=== PATIENT | female | born 1940 | race Caucasian/White ===

== ENCOUNTER 2017-04-03 10:27 | Day surgery (SDC) | payer MEDICARE, BC ==
--- OUTSIDE RECORDS SUMMARY | 2017-04-03 10:31 | XMS REPORT | Continuity of Care Document ---
:1940 Author Organization [facility] ([facility]) Address [address] [place] [address] Phone [phone] Care Team Providers Name Role Phone Lewis Sanford Primary Care Provider [phone] Source Comments This disclosure is being made pursuant to the Care Everywhere program, applicable federal and state laws, and may not contain all informaitonavailable regarding this patient.[facility] ([facility]) Active Allergies and Adverse Reactions Allergen Noted Date Severity Reactions Comments Azithromycin 04/14/2016 Unknown Codeine 04/14/2016 Unknown Erythromycin 04/14/2016 Unknown Other Agent 04/14/2016 Unknown Sulfa (Sulfonamide Antibiotics) 04/14/2016 Unknown Current Medications Prescription Sig. Disp. Refills Start Date End Date Status ALLOPURINOL 300 mg 150 mg daily. 3 06/01/2015 Active tablet CLOPIDOGREL 75 mg 3 07/06/2015 Active tablet TAZTIA XT 360 mg ER Take 360 mg by 2 06/01/2015 Active capsule mouth daily. DULOXETINE 30 mg XR Take 30 mg by 6 06/30/2015 Active capsule mouth 2 times daily. FENOFIBRATE 160 mg Take 160 mg by 2 07/09/2015 Active tablet mouth daily. FLUTICASONE 50 8 08/04/2015 Active mcg/Actuation nasal spray METOPROLOL tartrate 100 Take 100 mg by 2 08/03/2015 Active mg tablet mouth daily. MOMETASONE 0.1 % 3 07/22/2015 Active ointment MONTELUKAST 10 mg Take 10 mg by 6 07/22/2015 Active tablet mouth every evening. MORPHINE 15 mg CR Take 15 mg by 0 08/04/2015 Active tablet mouth 2 times daily. polyethylene glycol 3 06/18/2015 Active 3350 (MIRALAX) 17 gram/dose powder losartan-hydrochlorothi Take 1 tablet by 90 tablet 1 08/27/2015 Active azide 100-25 mg per mouth daily tablet mirtazapine 15 mg Take 15 mg by 3 04/11/2016 Active tablet mouth at bedtime. pantoprazole 40 mg EC Take 40 mg by 6 04/12/2016 Active tablet mouth daily. potassium chloride 10 Take 40 mEq by 03/17/2016 Active mEq tablet mouth daily. cetirizine 10 mg tablet Take 10 mg by Active mouth daily. Active Problems Problem Noted Date Aortic valve sclerosis 08/09/2015 Overview: Formatting of this note may be different from the original. CARDIOVASCULAR PROCEDURES ECHO/MUGA: Echo (There is mild to moderate concentric left ventricular hypertrophy. Left ventricular systolic function is normal. The transmitral spectral Doppler flow pattern is suggestive of impaired LV relaxation. There is aortic valve sclerosis without stenosis. Doppler findings do not suggest pulmonary hypertension. ) - 09/12/2011 STRESS TESTS: MPI (EF.65, Normal 1) LV has normal size, wall motion and systolic function with calculated EF of 65%. 2) Normal MPI study for inducible ischemia.) - 09/14/2011 Precordial pain 08/09/2015 Overview: Formatting of this note may be different from the original. STRESS TESTS: MPI (EF.65, Normal 1) LV has normal size, wall motion and systolic function with calculated EF of 65%. 2) Normal MPI study for inducible ischemia.) - 09/14/2011 Hyperlipidemia Hypertension Diabetes mellitus Diastolic dysfunction Social History Tobacco Use Types Packs/Day Years Used Date Never Smoker Smokeless Tobacco: Never Used Alcohol Use Drinks/Week oz/Week Comments No Last Filed Vital Signs Vital Sign Reading Time Taken Blood Pressure 122/60 04/14/2016 12:50 PM CDT Pulse 70 04/14/2016 12:50 PM CDT Temperature - - Respiratory Rate - - Height 1.575 m (5' 2.01") 04/14/2016 12:50 PM CDT Weight 77.565 kg (171 lb) 04/14/2016 12:50 PM CDT Body Mass Index 31.27 04/14/2016 12:50 PM CDT Oxygen Saturation - - Plan of Care Health Maintenance Due Date Last Done Comments Hepatitis B Vaccine (1 of 3 - Primary Series) 1940 Tdap Vaccine 1952 DIABETIC: Cholesterol 1959 Diabetic: Hdl 1959 DIABETIC: Hemoglobin A1C 1959 Diabetic: Ldl 1959 DIABETIC: Microalbumin 1959 DIABETIC: Triglycerides 1959 Td Vaccine 1959 Mammogram 1981 Colonoscopy 1991 Zoster Vaccine 2001 Osteoporosis Screening (DXA Bone Density) 2006 Pneumococcal Vaccine (1 of 2 - PCV13) 2006 DIABETIC: Foot Exam 08/09/2015 DIABETIC: Retinal Eye Exam 08/09/2015 Influenza Vaccine: Seasonal (#1) 05/23/2016 Results from Last 3 Months Not on file
--- NOTE | 2017-04-03 11:21 | OR ---
Anesthesia Pre Procedure Eval Date of Service: 04/03/17 Pre Procedure Evaluation: Last Vital Signs Temp 36.5 C 04/03/17 10:35 Pulse 72 04/03/17 10:35 Resp 18 04/03/17 10:35 BP 132/70 04/03/17 10:35 Pulse Ox 96 04/03/17 10:35 Anesthesia Pre Procedure Evaluation DATE: 04/03/2017. TIME: 1110. INDICATIONS: Arthritis, facet joint arthropathy, and back pain. PAST MEDICAL HISTORY: Is a 76-year-old female with a history of lumbar back pain which is nonradiating in nature. This is her first facet injection. EXAM: MRI report and films were reviewed. Pain is 5/10 on pain scale at present. ASSESSMENT OF MEDICAL STATUS: O.K. to proceed with facet injections. PLANNED PROCEDURE: Bilateral fluoroscopic guided facet injections L3-4, L4-5, L5-S1. Home Medications: HOME MEDICATIONS Clopidogrel Bisulfate [Plavix] 75 mg PO DAILY 02/06/13 [Last Taken Unknown] DULoxetine HCL [Cymbalta] 30 mg PO DAILY 02/06/13 [Last Taken Unknown] Fluticasone Propionate [Flonase] 1 spray NS DAILY 02/06/13 [Last Taken Unknown] Morphine Sulfate [Ms Contin] 15 mg PO Q8H 02/06/13 [Last Taken Unknown] Polyethylene Glycol 3350 [Miralax] 17 gm PO DAILY 02/06/13 [Last Taken Unknown] Albuterol Sulfate [Ventolin HFA] 2 puff IH Q4H PRN 03/31/17 [Last Taken Unknown] Allopurinol [Zyloprim (Allopurinol)] 200 mg PO DAILY 03/31/17 [Last Taken Unknown] Blood-Glucose Meter [Blood Glucose Monitoring] 1 each MC DAILY 03/31/17 [Last Taken Unknown] Cetirizine HCl [Zyrtec] 10 mg PO DAILY 03/31/17 [Last Taken Unknown] Cholecalciferol (Vitamin D3) [Vitamin D3] 3,000 unit PO Q2D 03/31/17 [Last Taken Unknown] Cholecalciferol (Vitamin D3) [Vitamin D] 2,000 unit PO Q2D 03/31/17 [Last Taken Unknown] Ciclopirox Olamine [Loprox] 1 appl TP BID 03/31/17 [Last Taken Unknown] Diltiazem HCl [Tiazac] 180 mg PO DAILY 03/31/17 [Last Taken Unknown] Furosemide [Lasix] 40 mg PO DAILY 03/31/17 [Last Taken Unknown] L. Acidophilus/L. Rhamnosus [Probiotic 15 Billion Cell Cap] 1 each PO DAILY 07/09 [Last Taken Unknown] Losartan Potassium [Cozaar] 25 mg PO DAILY 03/31/17 [Last Taken Unknown] Metoprolol Tartrate [Lopressor] 50 mg PO DAILY 03/31/17 [Last Taken Unknown] Mirtazapine [Mirtazapine (Remeron)] 15 mg PO HS 03/31/17 [Last Taken Unknown] Montelukast Sodium [Singulair] 10 mg PO DAILY 03/31/17 [Last Taken Unknown] Sennosides/Docusate Sodium [Senokot-S] 2 tab PO BID 03/31/17 [Last Taken Unknown ] predniSONE [Prednisone] 10 mg PO DAILY PRN 03/31/17 [Last Taken Unknown]
[2017-04-03] MEDS ORDERED: DEXAMETHASONE SOD PHOSPHATE 10 MG/ML VIAL IJ ONE (11:40)
[2017-04-03] MEDS ORDERED: BUPIVACAINE HCL/PF 30 ML VIAL IJ ONE (11:40)
[2017-04-03] MEDS ORDERED: LIDOCAINE HCL/PF 5 ML VIAL IJ ONE (11:40)
--- NOTE | 2017-04-03 12:28 | OR ---
Anesthesia Procedure Note - Anesthesia Procedure Note Date of Service: 04/03/17 Narrative: Vital Signs - Last Taken Temp 36.5 C 04/03/17 10:35 Pulse 94 04/03/17 12:05 Resp 16 04/03/17 12:05 BP 164/78 04/03/17 12:05 Pulse Ox 97 04/03/17 12:05 O2 Oxygen Delivery Method Room Air 04/03/17 12:15 ANESTHESIA PROCEDURE NOTE Date of Procedure: 04/03/2017. Time of procedure: 1135. Performed by: Bam Shrestha CRNA Biology Lecturer: None. Preprocedure diagnosis: Arthritis, facet joint arthropathy, back pain. Post procedure diagnosis: Same. Procedure: Bilateral fluoroscopic guided facet injections L3-4, L4-5, and L5-S1. Indications: This is a 76-year-old female with history of nonradiating back pain which is worsened upon ambulation. Findings: See below. Details of the procedure: The patient was brought back to operating room #2. The patient was then placed in the prone position to comfort. DuraPrep was applied to the patient's back. Patient was then draped in sterile fashion. Lidocaine 1% was injected subcutaneously at the intended target site of each facet injection. With fluoroscopic guidance, a 22-gauge quickie 3-1/2 inch spinal needle was placed into the left L5-S1 facet joint. A after negative aspiration 1.5 mL of a mixture of 1.33 mL 0.5% preservative-free Marcaine +1.66 mg of preservative free dexamethasone was instilled into the left L5-S1 facet joint. The needle was removed. A similar procedure was performed on the left L4-5 facet joint, the left L3-4 facet joint, the right L5-S1 facet joint, the right L4-5 facet joint, and the right L3-4 facet joint. Total fluoroscopy time:39.1seconds Cumulative Dose:11.37mGy. EBL: Minimal. Fluids: N/A. Specimen: N/A. Post procedure condition: The patient tolerated the procedure well. No complications were noted. No motor weaknesses or paresthesias were noted upon discharge. Thank you for this consultation. Bam Shrestha CRNA
[2017-04-03 15:48] VITALS: BP 134/72
== END 2017-04-03 10:28 | disposition home or self-care (01) ==
LOC: AMB 10:27
PROVIDERS: ATTEND Family Medicine
PROC: 3E0S3BZ Introduction of Anesthetic Agent into Epidural Space, Percutaneous Approach (ICD-10-PCS; 2017-04-03)
PROC: 3E0S33Z Introduction of Anti-inflammatory into Epidural Space, Percutaneous Approach (ICD-10-PCS; principal; 2017-04-03 11:00)
DX: M46.86 Other specified inflammatory spondylopathies, lumbar region (principal); Z68.35 Body mass index [BMI] 35.0-35.9, adult

== ENCOUNTER 2017-07-29 05:58 | Emergency (ER) | payer MEDICARE, BC ==
[2017-07-29] MEDS ORDERED: NITROGLYCERIN 0.4 MG/TAB BTL SL ONE (06:12)
[2017-07-29] MEDS ORDERED: ONDANSETRON HCL/PF 2 MG/ML VIAL ONE (06:21)
[2017-07-29] MEDS ORDERED: ONDANSETRON HCL/PF 2 MG/ML VIAL IV ONE (06:24)
[2017-07-29] MEDS ORDERED: PROMETHAZINE HCL 25 MG/ML AMPUL IM ONE (06:35)
[2017-07-29 06:36] LABS: Hematocrit 30.2 % (37.0-47.0); Hemoglobin 9.4 gm/dL (12.5-16.0); Mean Cell Volume 99.3 fl (78-100); Mean Corpuscular Hemoglobin 30.9 pg (27-31); Mean Corpuscular Hgb Conc 31.1 g/dl (32-36); Mean Platelet Volume 10.4 fl (6.0-9.5); Neutrophil # 12.8 K/mm3 (1.3-6.0); Neutrophil % 73.1 % (42-75.0); Platelet Count 292 K/mm3 (150-450); Red Blood Count 3.04 M/mm3 (4.2-5.4); Red Cell Distribution Width 15.8 % (11.5-14.0); White Blood Count 17.5 K/mm3 (4.0-10.5)
--- NOTE | 2017-07-29 06:37 | ERNOTE ---
<Eulalio Wisdom - Last Filed: 07/29/17 10:06> Chest Pain/Cardiac HPI Chief Complaint: Chest Pain Time Seen by Provider: 07/29/17 06:05 Immunizations: IMMUNIZATION HX Immunizations Up to Date Yes History of Influenza Vaccine Yes Hx Pneumococcal Vaccination Yes Allergies/Adverse Reactions: Allergies Sulfa (Sulfonamide Antibiotics) [Sulfa(Sulfonamide Antibiotics)] Allergy ( Unknown, Verified 07/29/17 06:07) adhesive tape Adverse Reaction (Mild, Verified 07/29/17 06:07) RED IRRITATION azithromycin [From Zithromax Z-Fam] Adverse Reaction (Mild, Verified 07/29/17 06 :07) GI UPSET ciprofloxacin HCl [From Cipro] Adverse Reaction (Mild, Verified 07/29/17 06:07) Vomiting, STOMACH PAIN codeine [Codeine] Adverse Reaction (Mild, Verified 07/29/17 06:07) ABD PAIN, N/V erythromycin base [Erythromycin Base] Adverse Reaction (Mild, Verified 07/29/17 06:07) GI UPSET/PAIN oxycodone Adverse Reaction (Mild, Verified 07/29/17 06:07) Nausea Home Medications: HOME MEDICATIONS Clopidogrel Bisulfate [Plavix] 75 mg PO DAILY 02/06/13 [Last Taken Unknown] DULoxetine HCL [Cymbalta] 30 mg PO DAILY 02/06/13 [Last Taken Unknown] Fluticasone Propionate [Flonase] 1 spray NS DAILY 02/06/13 [Last Taken Unknown] Morphine Sulfate [Ms Contin] 15 mg PO Q8H 02/06/13 [Last Taken Unknown] Polyethylene Glycol 3350 [Miralax] 17 gm PO DAILY 02/06/13 [Last Taken Unknown] Albuterol Sulfate [Ventolin HFA] 2 puff IH Q4H PRN 03/31/17 [Last Taken Unknown] Allopurinol [Zyloprim (Allopurinol)] 200 mg PO DAILY 03/31/17 [Last Taken Unknown] Blood-Glucose Meter [Blood Glucose Monitoring] 1 each MC DAILY 03/31/17 [Last Taken Unknown] Cholecalciferol (Vitamin D3) [Vitamin D3] 3,000 unit PO Q2D 03/31/17 [Last Taken Unknown] Diltiazem HCl [Tiazac] 180 mg PO DAILY 03/31/17 [Last Taken Unknown] Furosemide [Lasix] 40 mg PO DAILY 03/31/17 [Last Taken Unknown] L. Acidophilus/L. Rhamnosus [Probiotic 15 Billion Cell Cap] 1 each PO DAILY 07/09 [Last Taken Unknown] Losartan Potassium [Cozaar] 25 mg PO DAILY 03/31/17 [Last Taken Unknown] Metoprolol Tartrate [Lopressor] 50 mg PO DAILY 03/31/17 [Last Taken Unknown] Mirtazapine [Mirtazapine (Remeron)] 15 mg PO HS 03/31/17 [Last Taken Unknown] Montelukast Sodium [Singulair] 10 mg PO DAILY 03/31/17 [Last Taken Unknown] Sennosides/Docusate Sodium [Senokot-S] 2 tab PO BID 03/31/17 [Last Taken Unknown ] Famotidine [Pepcid AC] 20 mg PO DAILY 07/29/17 [Last Taken Unknown] ED Progress - Date and Time Seen: Date and Time: 07/29/17 10:07 Reviewed symptoms with patient. Pain is improved. Still increased with inspiration. Previous radiation to right arm is gone. Still slight radiation directly posterior to back. Exam: tender lower parasternal area with palpation. Chest is clear. - Vital Signs Vital Signs: Vital Signs 07/29/17 07/29/17 07/29/17 06:02 06:10 06:20 Temperature 36.8 C Pulse Rate 98 91 90 Respiratory 25 H 20 27 H Rate Blood Pressure 194/69 175/67 143/58 O2 Sat by Pulse 95 93 97 Oximetry 07/29/17 07/29/17 07/29/17 06:52 07:17 07:22 Temperature 36.8 C Pulse Rate 90 92 Respiratory 25 H 25 H Rate Blood Pressure 182/69 164/61 O2 Sat by Pulse 91 88 L 95 Oximetry 07/29/17 07/29/17 07:51 09:10 Temperature Pulse Rate 91 92 Respiratory 20 Rate Blood Pressure 157/60 136/54 O2 Sat by Pulse 99 92 Oximetry - Progress/Reassessment Chief Complaint: Chest Pain Plan - Plan Plan: Discussed with patient and . Likely costochondritis pain and/or esophageal. Does not appear to be cardiac. Departure Clinical Impression: Chest pain Qualifiers: Chest pain type: intercostal pain Qualified Code(s): R07.82 - Intercostal pain GERD (gastroesophageal reflux disease) Qualifiers: Esophagitis presence: esophagitis presence not specified Qualified Code(s): K21.9 - Gastro-esophageal reflux disease without esophagitis - Departure Disposition: Home self-care Condition: Fair Instructions: Nonspecific Chest Pain, [id number] Additional Instructions: Elevate HOB 10-12 inches Do not eat less than 3 hours before reclining Take Pepcid twice a day for one week then daily Use tylenol 650 mg every 6 hours for 48hrs Follow up with PCP Return to ED if condition worsens Referrals: Lewis Sanford MD [Primary Care Provider] - <Maile Brower - Last Filed: 07/31/17 07:35> Chest Pain/Cardiac HPI Source: patient, family, RN notes reviewed Exam Limitations: no limitations Immunizations: IMMUNIZATION HX Immunizations Up to Date Yes History of Influenza Vaccine Yes Hx Pneumococcal Vaccination Yes Narrative: Patient woke up about 4 AM with chest pain. She became nauseated from the pain, which is located across her chest, worse with breathing and movement. She tried various things at home to see if she could get the pain to settle down, but was unable to calm the pain down at all. She had not vomited, but was definitely sick to her stomach from the pain. Review of Systems - Review of Systems Constitutional: Absent: recent illness, fever, chills, diaphoresis, weakness EYE: Present: no symptoms reported ENT: Absent: ear pain, sore throat Respiratory: Absent: shortness of breath, cough Cardiology: Present: chest pain. Absent: palpitations, syncope Gastrointestinal/Abdominal: Present: nausea, vomiting. Absent: diarrhea, constipation, abdominal pain Genitourinary: Present: no symptoms reported Musculoskeletal: Present: no symptoms reported Skin: Absent: rash, dryness, lesions, lumps Neurological: Present: no symptoms reported Endocrine: Present: no symptoms reported Hematologic/Lymphatic: Present: no symptoms reported Psych: Present: no symptoms reported - Patient's Past Medical History Patient History - Medical: Chronic Pain, Diabetes Type 2, Renal Disease Patient History - Cardiac/Respiratory: Hypertension Patient History - Cancer: Skin Patient History - Surgical Procedures: Cholecystectomy, Hysterectomy, Total Knee Replacement, T & A Patient History - Other: None LMP (females 10-50): post men - Family History Mother Family History - Cardiac/Respiratory: CHF Father Family History - Cardiac/Respiratory: Hypertension - Social History Living Situations: home Psych History: No pertinent hx Smoking Status: Never smoker Alcohol Use: none Drug Use: none - Immunizations Immunizations Up to Date: Yes Hx Pneumococcal Vaccination: Yes History of Influenza Vaccine: Yes Physical Exam - Physical Exam General Appearance: Present: wd/wn, moderate distress, obese Head Exam: Present: normal inspection, no evidence of injury Eye Exam: Normal inspection: bilateral, PERRL: bilateral, EOMI: bilateral Ears, Nose, Throat: Present: normal ENT inspection, normal pharynx Neck: Present: normal inspection, nontender Respiratory: Present: no respiratory distress, normal breath sounds, no accessory muscle use, chest nontender, lungs clear Cardiovascular/Chest: Present: regular rate, rhythm, no murmur Gastrointestinal/Abdominal: Present: normal bowel sounds, nontender, nondistended, soft, no organomegaly Extremity Exam: Present: normal inspection, non-tender, normal range of motion, no edema Neurological Exam: Present: alert, oriented, normal mood/affect, no motor/ sensory deficits Skin Exam: Present: pallor ED Progress - Results and Orders Patient's Lab Results:: I have reviewed the patient's lab results. Results and Orders: Laboratory Tests 07/29/17 07/29/17 07/29/17 06:15 06:15 06:15 WBC 17.5 H RBC 3.04 L Hgb 9.4 L Hct 30.2 L MCV 99.3 MCH 30.9 MCHC 31.1 L RDW 15.8 H Plt Count 292 MPV 10.4 H Immature Gran % (Auto) 0.90 H Immature Gran # (Auto) 0.16 H Neutrophils % 73.1 Lymphocytes % 16.8 L Monocytes % 5.2 Eosinophils % 3.5 H Basophils % 0.5 Nucleated RBC % 0.0 Neutrophils # 12.8 H Lymphocytes # 2.9 Monocytes # 0.9 Eosinophils # 0.6 Absolute Basophils 0.1 PT 10.2 INR (Anticoag Therapy) 0.98 PTT ([place]) 28.2 Sodium 142 Plasma Sodium 143 H Potassium 3.1 L D Chloride 104 Carbon Dioxide 26.8 Anion Gap 14.3 H BUN 40 H Creatinine 3.45 H D Est GFR (Non-Af Amer) 14 L BUN/Creatinine Ratio 11.6 Random Glucose 157 H Calcium 8.9 Calcium Adj for Albumin 9.3 Total Bilirubin 0.5 AST 11 ALT 11 L Alkaline Phosphatase 167 Troponin I Less than 0.017 Total Protein 7.7 Albumin 3.1 L Urine Color Urine Appearance Urine pH Ur Specific [place] Urine Protein Urine Glucose (UA) Urine Ketones Urine Blood Urine Nitrate Urine Bilirubin Prot Sulfosalicylic Acd Urine Urobilinogen Ur Leukocyte Esterase Urine RBC Urine WBC Ur Epithelial Cells Urine Bacteria Urine Culture Comments 07/29/17 07/29/17 06:30 09:21 WBC RBC Hgb Hct MCV MCH MCHC RDW Plt Count MPV Immature Gran % (Auto) Immature Gran # (Auto) Neutrophils % Lymphocytes % Monocytes % Eosinophils % Basophils % Nucleated RBC % Neutrophils # Lymphocytes # Monocytes # Eosinophils # Absolute Basophils PT INR (Anticoag Therapy) PTT ([place]) Sodium Plasma Sodium Potassium Chloride Carbon Dioxide Anion Gap BUN Creatinine Est GFR (Non-Af Amer) BUN/Creatinine Ratio Random Glucose Calcium Calcium Adj for Albumin Total Bilirubin AST ALT Alkaline Phosphatase Troponin I Less than 0.017 Total Protein Albumin Urine Color Yellow Urine Appearance Clear Urine pH 7.0 Ur Specific [place] 1.010 Urine Protein 30 H Urine Glucose (UA) 250 H Urine Ketones Negative Urine Blood 25 H Urine Nitrate Negative Urine Bilirubin Negative Prot Sulfosalicylic Acd 2+ H Urine Urobilinogen Normal Ur Leukocyte Esterase Negative Urine RBC 0-5 Urine WBC Trace H Ur Epithelial Cells 0-5 Urine Bacteria 2+ H Urine Culture Comments Culture to follow - Vital Signs Patient's Vital Signs:: I have reviewed the patient's vital signs. Vital Signs: Vital Signs 07/29/17 07/29/17 07/29/17 06:02 06:10 06:20 Temperature 36.8 C Pulse Rate 98 91 90 Respiratory 25 H 20 27 H Rate Blood Pressure 194/69 175/67 143/58 O2 Sat by Pulse 95 93 97 Oximetry - Transfer of Care Physician Sign Out: Maile Brower Brief History: sudden onset of chest pain this morning, shortness of breath, tender bilaterally. First troponin is negative. History of chronic pain. Receiving Physician: Eulalio Wisdom Pending Results: Labs Expected Disposition: Discharge
[2017-07-29] MEDS ORDERED: MORPHINE SULFATE 2 MG/ML DISP.SYRIN IV ONE ×2 (06:38→06:57)
[2017-07-29] MEDS ORDERED: MORPHINE SULFATE 2 MG/ML DISP.SYRIN ONE ×2 (06:46→07:15)
[2017-07-29] MEDS ORDERED: PROMETHAZINE HCL 25 MG/ML AMPUL ONE (06:46)
[2017-07-29 06:47] LABS: Urine Bilirubin Negative (NEGATIVE); Urine Blood 25 /ul (NEGATIVE); Urine Ketone Negative (NEGATIVE); Urine Nitrite Negative (NEGATIVE); Urine Protein 30 mg/dL (NEGATIVE); Urine Urobilinogen Normal (NORMAL)
[2017-07-29 06:50] LABS: Prothrombin Time (Patient) 10.2 Seconds (9.4-11.4)
[2017-07-29 06:57] LABS: INR 0.98 INR (0.90-1.10); Partial Thrombolplastin Time 28.2 Seconds (24-32)
[2017-07-29 07:01] LABS: ALT 11 U/L (19-67); AST 11 U/L (0-48); Albumin * 3.1 gm/dl (3.4-5.0); Alkaline Phosphatase * 167 U/L (50-170); Anion Gap 14.3 mmol/L (6.8-13.8); BUN/Creatinine Ratio 11.6 (9.0-21.6); Bilirubin, Total 0.5 mg/dL (0.0-1.1); Blood Urea Nitrogen 40 mg/dL (3-23); Ca. Corrected For Albumin 9.3 mg/dL (8.4-10.2); Calcium * 8.9 mg/dL (7.9-10.9); Carbon Dioxide 26.8 mmol/L (24-32.6); Chloride 104 mmol/L (97-106); Glucose * 157 mg/dL (70-110); Potassium 3.1 mmol/L (3.4-4.6); Sodium 142 mmol/L (132-142); Total Protein 7.7 gm/dL (6.2-8.2); Troponin I Less than 0.017 ng/ml (0.00-0.10)
[2017-07-29 07:13] LABS: Urine Appearance Clear; Urine Bacteria 2+; Urine Color Yellow; Urine RBC 0-5 /hpf (0-5); Urine WBC TRACE /hpf (0-5)
[2017-07-29 10:11] VITALS: BP 134/46
== END 2017-07-29 10:22 | disposition home or self-care (01) ==
LOC: ER 05:58
DX: R07.82 Intercostal pain (principal); K21.9 Gastro-esophageal reflux disease without esophagitis; G89.29 Other chronic pain; E11.9 Type 2 diabetes mellitus without complications; I10 Essential (primary) hypertension; N28.9 Disorder of kidney and ureter, unspecified; Z85.828 Personal history of other malignant neoplasm of skin
CPT/HCPCS: 36415; 71020; 80053; 81001; 84484; 85025; 85610; 85730; 87086; 93005; 96372; 96374; 96375; 99284; J2405

== ENCOUNTER 2017-07-31 08:46 | Emergency (ER) | payer MEDICARE, BC ==
[2017-07-31 09:02] VITALS: BP 138/63
--- NOTE | 2017-07-31 09:32 | ERNOTE ---
Medical Problem HPI - General Chief Complaint: General Assessment Time Seen by Provider: 07/31/17 09:05 Source: patient, family Exam Limitations: no limitations - Immun/Allergies/Home Medications Immunizations: IMMUNIZATION HX Immunizations Up to Date Yes History of Influenza Vaccine No Hx Pneumococcal Vaccination No Allergies/Adverse Reactions: Allergies Sulfa (Sulfonamide Antibiotics) [Sulfa(Sulfonamide Antibiotics)] Allergy ( Unknown, Verified 07/31/17 09:02) adhesive tape Adverse Reaction (Mild, Verified 07/31/17 09:02) RED IRRITATION azithromycin [From Zithromax Z-Fam] Adverse Reaction (Mild, Verified 07/31/17 09 :02) GI UPSET ciprofloxacin HCl [From Cipro] Adverse Reaction (Mild, Verified 07/31/17 09:02) Vomiting, STOMACH PAIN codeine [Codeine] Adverse Reaction (Mild, Verified 07/31/17 09:02) ABD PAIN, N/V erythromycin base [Erythromycin Base] Adverse Reaction (Mild, Verified 07/31/17 09:02) GI UPSET/PAIN oxycodone Adverse Reaction (Mild, Verified 07/31/17 09:02) Nausea Home Medications: HOME MEDICATIONS Clopidogrel Bisulfate [Plavix] 75 mg PO DAILY 02/06/13 [Last Taken Unknown] DULoxetine HCL [Cymbalta] 30 mg PO DAILY 02/06/13 [Last Taken Unknown] Fluticasone Propionate [Flonase] 1 spray NS DAILY 02/06/13 [Last Taken Unknown] Morphine Sulfate [Ms Contin] 15 mg PO Q8H 02/06/13 [Last Taken Unknown] Polyethylene Glycol 3350 [Miralax] 17 gm PO DAILY 02/06/13 [Last Taken Unknown] Albuterol Sulfate [Ventolin HFA] 2 puff IH Q4H PRN 03/31/17 [Last Taken Unknown] Allopurinol [Zyloprim (Allopurinol)] 200 mg PO DAILY 03/31/17 [Last Taken Unknown] Blood-Glucose Meter [Blood Glucose Monitoring] 1 each MC DAILY 03/31/17 [Last Taken Unknown] Cholecalciferol (Vitamin D3) [Vitamin D3] 3,000 unit PO Q2D 03/31/17 [Last Taken Unknown] Diltiazem HCl [Tiazac] 180 mg PO DAILY 03/31/17 [Last Taken Unknown] Furosemide [Lasix] 40 mg PO DAILY 03/31/17 [Last Taken Unknown] L. Acidophilus/L. Rhamnosus [Probiotic 15 Billion Cell Cap] 1 each PO DAILY 07/09 [Last Taken Unknown] Losartan Potassium [Cozaar] 25 mg PO DAILY 03/31/17 [Last Taken Unknown] Metoprolol Tartrate [Lopressor] 50 mg PO DAILY 03/31/17 [Last Taken Unknown] Mirtazapine [Mirtazapine (Remeron)] 15 mg PO HS 03/31/17 [Last Taken Unknown] Montelukast Sodium [Singulair] 10 mg PO DAILY 03/31/17 [Last Taken Unknown] Sennosides/Docusate Sodium [Senokot-S] 2 tab PO BID 03/31/17 [Last Taken Unknown ] Famotidine [Pepcid AC] 20 mg PO DAILY 07/29/17 [Last Taken Unknown] Cefuroxime Axetil [Ceftin] 250 mg PO Q12H #20 tab 07/31/17 [Last Taken Unknown] - History of Present History Narrative: Patient was seen here 2 days ago for chest wall pain and returns today with progressive weakness, low back pain and a cough. Timing: getting worse Severity: moderate Review of Systems - Review of Systems Constitutional: Present: See HPI, weakness - worsening EYE: Present: no symptoms reported ENT: Present: no symptoms reported Respiratory: Present: cough Cardiology: Present: no symptoms reported Gastrointestinal/Abdominal: Present: no symptoms reported Genitourinary: Present: no symptoms reported Musculoskeletal: Present: back pain - chronic back pain Skin: Present: no symptoms reported Neurological: Present: no symptoms reported Endocrine: Present: no symptoms reported Hematologic/Lymphatic: Present: no symptoms reported Psych: Present: no symptoms reported - Patient's Past Medical History Patient History - Medical: Chronic Pain, Diabetes Type 2, Renal Disease Patient History - Cardiac/Respiratory: Asthma, Hypertension Patient History - Cancer: Skin Patient History - Surgical Procedures: Cholecystectomy, Hysterectomy, Total Knee Replacement, T & A Patient History - Other: None - Family History Mother Family History - Cardiac/Respiratory: CHF Father Family History - Cardiac/Respiratory: Hypertension - Social History Living Situations: spouse Psych History: No pertinent hx Smoking Status: Unknown if ever smoked Alcohol Use: none Drug Use: none - Immunizations Immunizations Up to Date: Yes Hx Pneumococcal Vaccination: No History of Influenza Vaccine: No Physical Exam - Physical Exam General Appearance: Present: wd/wn, alert, moderate distress Head Exam: Present: normal inspection Eye Exam: Normal inspection: bilateral, PERRL: bilateral Ears, Nose, Throat: Present: normal ENT inspection, H, normal pharynx Neck: Present: normal inspection, nontender Respiratory: Present: no respiratory distress, no accessory muscle use, chest tenderness - right-sided chest wall, wheezing, other - fine course breath sounds in the bases Cardiovascular/Chest: Present: regular rate, rhythm, no murmur, normal peripheral pulses Gastrointestinal/Abdominal: Present: normal bowel sounds, nondistended, soft, no organomegaly, tenderness - suprapubic Rectal Exam: Present: deferred Back Exam: Present: normal range of motion, other - chronic lumbar back pain Extremity Exam: Present: normal inspection, non-tender, no edema, normal range of motion Neurological Exam: Present: alert, oriented, normal mood/affect Skin Exam: Present: normal color, warm/dry Lymphatic Exam: Present: no adenopathy ED Progress - Results and Orders Patient's Lab Results:: I have reviewed the patient's lab results. - Vital Signs Patient's Vital Signs:: I have reviewed the patient's vital signs. Vital Signs: Vital Signs 07/31/17 08:58 Temperature 37.6 C H Pulse Rate 85 Respiratory 24 H Rate Blood Pressure 138/63 O2 Sat by Pulse 95 Oximetry - EKG EKG: NSR EKG read: Reviewed by me - X-Ray X-Ray #1 X-Ray: abdomen Interpretation: Reviewed by me - CT/Ultrasound CT/Ultrasound Narrative: CT of the head was reviewed by me - Progress/Reassessment Chief Complaint: General Assessment Progress:: Unchanged Plan - Plan Plan: I had a discussion with the patient regarding her elevated white count and she states she gets monthly shots to help assist her due to her renal failure. We also discussed the worsening renal function and it was suggested that she call her healthcare network pricing consultant in [place] to talk about starting dialysis. Patient will be started on antibiotics for the bronchitis, possible pneumonia and what appears to be an early urinary tract infection. She will follow-up with Dr. Sanford as needed. It was suggested to the patient that she try to increase her water intake somewhat to help minimize the evolving renal failure. Departure Clinical Impression: Bronchitis Renal failure Qualifiers: Renal failure chronicity: chronic Chronic kidney disease stage: stage 5, not on chronic dialysis Qualified Code(s): N18.5 - Chronic kidney disease, stage 5 - Departure Disposition: Home self-care Condition: Good Instructions: Chronic Kidney Disease, [id number], Acute Bronchitis, Easy-to- Read Referrals: Lewis Sanford MD [Primary Care Provider] - Prescriptions: Cefuroxime Axetil [Ceftin] 250 mg PO Q12H #20 tab
[2017-07-31 09:40] LABS: Hematocrit 30.7 % (37.0-47.0); Hemoglobin 9.4 gm/dL (12.5-16.0); Mean Cell Volume 100.7 fl (78-100); Mean Corpuscular Hemoglobin 30.8 pg (27-31); Mean Corpuscular Hgb Conc 30.6 g/dl (32-36); Mean Platelet Volume 10.7 fl (6.0-9.5); Neutrophil # 11.7 K/mm3 (1.3-6.0); Neutrophil % 73.1 % (42-75.0); Platelet Count 294 K/mm3 (150-450); Red Blood Count 3.05 M/mm3 (4.2-5.4); Red Cell Distribution Width 15.7 % (11.5-14.0); White Blood Count 16.1 K/mm3 (4.0-10.5)
[2017-07-31 10:25] LABS: ALT 11 U/L (19-67); AST 11 U/L (0-48); Alkaline Phosphatase * 140 U/L (50-170); Anion Gap 13.7 mmol/L (6.8-13.8); BUN/Creatinine Ratio 12.6 (9.0-21.6); Bilirubin, Total 0.4 mg/dL (0.0-1.1); Blood Urea Nitrogen 53 mg/dL (3-23); Ca. Corrected For Albumin 9.1 mg/dL (8.4-10.2); Calcium * 8.6 mg/dL (7.9-10.9); Carbon Dioxide 28.2 mmol/L (24-32.6); Chloride 100 mmol/L (97-106); Glucose * 108 mg/dL (70-110); Magnesium 2.3 mg/dL (1.2-2.8); Potassium 3.9 mmol/L (3.4-4.6); Sodium 138 mmol/L (132-142); Total Protein 7.8 gm/dL (6.2-8.2); Troponin I Less than 0.017 ng/ml (0.00-0.10)
[2017-07-31 11:08] LABS: Urine Bilirubin Negative (NEGATIVE); Urine Ketone Negative (NEGATIVE); Urine Nitrite Negative (NEGATIVE); Urine Protein 100 mg/dL (NEGATIVE); Urine Specific Gravity 1.015 SP.GR. (1.005-1.010); Urine Urobilinogen Normal (NORMAL)
[2017-07-31 11:17] LABS: Urine Appearance Clear; Urine Bacteria 2+; Urine Blood 5 /ul (NEGATIVE); Urine Color Yellow; Urine RBC 0-5 /hpf (0-5); Urine WBC 0-5 /hpf (0-5)
== END 2017-07-31 12:01 | disposition home or self-care (01) ==
LOC: ER 08:46
DX: J40 Bronchitis, not specified as acute or chronic (principal); N18.5 Chronic kidney disease, stage 5; G89.29 Other chronic pain; E11.9 Type 2 diabetes mellitus without complications; I10 Essential (primary) hypertension; N28.9 Disorder of kidney and ureter, unspecified; Z85.828 Personal history of other malignant neoplasm of skin

== ENCOUNTER 2017-08-21 13:34 | Emergency (ER) | payer MEDICARE, BC ==
--- NOTE | 2017-08-21 15:39 | ERNOTE ---
Lower Extremity HPI - General Lower Extremities Pain: leg: left Time Seen by Provider: 08/21/17 15:27 Source: patient Exam Limitations: no limitations - Immun/Allergies/Home Medications Immunizations: IMMUNIZATION HX Immunizations Up to Date Yes History of Influenza Vaccine No Hx Pneumococcal Vaccination No Allergies/Adverse Reactions: Allergies Allergy/AdvReac Type Severity Reaction Status Date / Time Sulfa (Sulfonamide Allergy Unknown Verified 08/21/17 13:43 Antibiotics) [Sulfa(Sulfonamide Antibiotics)] adhesive tape AdvReac Mild RED Verified 08/21/17 13:43 IRRITATION azithromycin AdvReac Mild GI UPSET Verified 08/21/17 13:43 [From Zithromax Z-Fam] ciprofloxacin HCl AdvReac Mild Vomiting, Verified 08/21/17 13:43 [From Cipro] STOMACH PAIN codeine [Codeine] AdvReac Mild ABD PAIN, Verified 08/21/17 13:43 N/V erythromycin base AdvReac Mild GI Verified 08/21/17 13:43 [Erythromycin Base] UPSET/PAIN oxycodone AdvReac Mild Nausea Verified 08/21/17 13:43 Home Medications: HOME MEDICATIONS Clopidogrel Bisulfate [Plavix] 75 mg PO DAILY 02/06/13 [Last Taken Unknown] DULoxetine HCL [Cymbalta] 30 mg PO DAILY 02/06/13 [Last Taken Unknown] Fluticasone Propionate [Flonase] 1 spray NS DAILY 02/06/13 [Last Taken Unknown] Morphine Sulfate [Ms Contin] 15 mg PO Q8H 02/06/13 [Last Taken Unknown] Polyethylene Glycol 3350 [Miralax] 17 gm PO DAILY 02/06/13 [Last Taken Unknown] Albuterol Sulfate [Ventolin HFA] 2 puff IH Q4H PRN 03/31/17 [Last Taken Unknown] Allopurinol [Zyloprim (Allopurinol)] 200 mg PO DAILY 03/31/17 [Last Taken Unknown] Blood-Glucose Meter [Blood Glucose Monitoring] 1 each MC DAILY 03/31/17 [Last Taken Unknown] Cholecalciferol (Vitamin D3) [Vitamin D3] 2,500 unit PO DAILY 03/31/17 [Last Taken Unknown] Diltiazem HCl [Tiazac] 180 mg PO DAILY 03/31/17 [Last Taken Unknown] Furosemide [Lasix] 40 mg PO DAILY 03/31/17 [Last Taken Unknown] L. Acidophilus/L. Rhamnosus [Probiotic 15 Billion Cell Cap] 1 each PO DAILY 07/09 [Last Taken Unknown] Losartan Potassium [Cozaar] 25 mg PO DAILY 03/31/17 [Last Taken Unknown] Metoprolol Tartrate [Lopressor] 50 mg PO DAILY 03/31/17 [Last Taken Unknown] Mirtazapine [Mirtazapine (Remeron)] 15 mg PO HS 03/31/17 [Last Taken Unknown] Montelukast Sodium [Singulair] 10 mg PO DAILY 03/31/17 [Last Taken Unknown] Sennosides/Docusate Sodium [Senokot-S] 2 tab PO BID 03/31/17 [Last Taken Unknown ] Famotidine [Pepcid AC] 20 mg PO DAILY 07/29/17 [Last Taken Unknown] Cefuroxime Axetil [Ceftin] 250 mg PO Q12H #20 tab 07/31/17 [Last Taken Unknown] Cetirizine HCl [Zyrtec] 10 mg PO DAILY 08/21/17 [Last Taken Unknown] - History of Present Illness Narrative: Patient has had left leg pain for five days. She denies any injuries. She has a remote history of multiple DVTs (in the ). she is currently on plavix for h/p TIA and is concerned about having another blood clot Review of Systems - Review of Systems Constitutional: Absent: recent illness, fever EYE: Absent: vision changes ENT: Absent: nose congestion Respiratory: Absent: shortness of breath Cardiology: Absent: chest pain Gastrointestinal/Abdominal: Absent: nausea, abdominal pain Genitourinary: Present: decreased urinary output Musculoskeletal: Present: See HPI Skin: Absent: rash Neurological: Absent: weakness, numbness - Patient's Past Medical History Patient History - Medical: Chronic Pain, Diabetes Type 2, Renal Disease Patient History - Cardiac/Respiratory: Asthma, Hypertension Patient History - Cancer: Skin Patient History - Surgical Procedures: Cholecystectomy, Hysterectomy, Total Knee Replacement, T & A Patient History - Other: None - Family History Mother Family History - Cardiac/Respiratory: CHF Father Family History - Cardiac/Respiratory: Hypertension - Social History Living Situations: home Psych History: No pertinent hx Alcohol Use: none Drug Use: none - Immunizations Immunizations Up to Date: Yes Hx Pneumococcal Vaccination: No History of Influenza Vaccine: No Physical Exam - Physical Exam General Appearance: Present: wd/wn, alert, no apparent distress, obese Respiratory: Present: no respiratory distress, normal breath sounds, lungs clear Cardiovascular/Chest: Present: regular rate, rhythm, no murmur Extremity Exam: Present: normal inspection, non-tender - except: left lateral leg just below knee, normal range of motion Neurological Exam: Present: alert, oriented, normal mood/affect, no motor/ sensory deficits Skin Exam: Present: normal color, warm/dry ED Progress - Vital Signs Patient's Vital Signs:: I have reviewed the patient's vital signs. Vital Signs: Vital Signs 08/21/17 13:39 Temperature 36.4 C L Pulse Rate 72 Respiratory 12 Rate Blood Pressure 133/62 O2 Sat by Pulse 95 Oximetry - CT/Ultrasound CT/Ultrasound Narrative: U/S left leg doppler: no DVT - Progress/Reassessment Chief Complaint: Lower Extremity Pain/ Injury Progress Note-Subjective: 08/21/17 16:38 discussed u/s results with patient and family Departure Clinical Impression: Pain in left lower leg - Departure Disposition: Home self-care Condition: Good Additional Instructions: you do not have a blood clot in your leg, there is no clear cause for the soreness take tylenol and try icing it call your doctor for follow up if symptoms persist Referrals: Lewis Sanford MD [Primary Care Provider] -
[2017-08-21 16:46] VITALS: BP 128/64
== END 2017-08-21 16:44 | disposition home or self-care (01) ==
LOC: ER 13:34
DX: M79.662 Pain in left lower leg (principal); J45.909 Unspecified asthma, uncomplicated; I10 Essential (primary) hypertension; C44.90 Unspecified malignant neoplasm of skin, unspecified